=== PATIENT | male | born 1955 | race Caucasian/White ===

== ENCOUNTER 2017-04-30 09:58 | Emergency (ER) | payer BC ==
[2017-04-30 10:56] VITALS: BP 139/84
--- NOTE | 2017-04-30 11:07 | UC ---
Throat Pain/Nasal [place] HPI - HPI Summary HPI Summary: Pt c/o sore throat, nasal congestion, sinus tenderness, fever, and PND X 7 days. - History of Current Complaint Stated Complaint: COUGH,FEVER Time Seen by Provider: 04/30/17 10:31 Hx Obtained From: Patient Onset/Duration: Gradual Onset, Lasting Days - 7, Worse Since - onset Severity: Mild Cough: Nonproductive Associated Signs & Symptoms: Positive: Sinus Discomfort, Fever Related History: Seasonal Allergies - Epiglottits Risk Factors Epiglottis Risk Factors: Negative - Allergies/Home Medications Allergies/Adverse Reactions: Allergies Allergy/AdvReac Type Severity Reaction Status Date / Time SANTY Inhibitors Allergy Unknown Coughing Verified 04/30/17 10:46 No Known Drug Allergy Allergy See Comment Verified 10/08/13 09:50 Home Medications: Home Medications Valsartan TAB* [Diovan TAB*] 80 mg PO DAILY 04/30/17 [History Confirmed 04/30/17 ] PMH/Surg Hx/FS Hx/Imm Hx Previously Healthy: Yes Cardiovascular History: Hypertension - Surgical History Surgical History: Yes Surgery Procedure, Year, and Place: TONSILLECTOMY - Family History Known Family History: Positive: Cardiac Disease - Social History Occupation: Employed Full-time Lives: With Family Alcohol Use: Daily Alcohol Amount: 2 per day Substance Use Type: None Smoking Status (MU): Never Smoked Tobacco Have You Smoked in the Last Year: No - Immunization History Most Recent Influenza Vaccination: NOVEMBER 2016 Vaccination Up to Date: Yes Review of Systems Constitutional: Fever, Chills Skin: Negative Eyes: Negative ENT: Sore Throat, Sinus Congestion, Sinus Pain/Tenderness Respiratory: Cough Cardiovascular: Negative Gastrointestinal: Negative Genitourinary: Negative Motor: Negative Neurovascular: Negative Musculoskeletal: Negative Neurological: Headache Psychological: Negative Is Patient Immunocompromised?: No All Other Systems Reviewed And Are Negative: Yes Physical Exam Triage Information Reviewed: Yes Appearance: Well-Appearing Vital Signs: Initial Vital Signs Temp 99.2 F 04/30/17 10:48 Pulse 85 04/30/17 10:48 Resp 20 04/30/17 10:48 BP 139/84 04/30/17 10:48 Pulse Ox 99 04/30/17 10:48 Vital Signs Reviewed: Yes Eye Exam: Normal ENT Exam: Other ENT: Positive: Nasal congestion, Sinus tenderness Dental Exam: Normal Neck exam: Normal Respiratory Exam: Normal Cardiovascular Exam: Normal Musculoskeletal Exam: Normal Neurological Exam: Normal Psychological Exam: Normal Skin Exam: Normal Throat Pain/Nasal Course/Dx - Differential Dx/Diagnosis Differential Diagnosis/HQI/PQRI: Sinusitis Provider Diagnoses: sinusitis. cough Discharge - Discharge Plan Condition: Stable Disposition: HOME Prescriptions: Amoxicillin PO (*) [Amoxicillin 875 MG (*)] 875 mg PO Q12H #20 tab Benzonatate CAP* [Tessalon 100 MG CAP*] 100 mg PO Q8H PRN #30 cap PRN Reason: Cough guaiFENesin ER TAB [Mucinex*] 600 mg PO Q12H #20 tab Patient Education Materials: Sinusitis (ED), Acute Cough (ED) Referrals: Daryl Sharma MD [Primary Care Provider] - If Needed
== END 2017-04-30 11:20 | disposition home or self-care (01) ==
LOC: UCCORT 09:58
DX: J32.9 Chronic sinusitis, unspecified (principal); R05 Cough; I10 Essential (primary) hypertension; Z88.8 Allergy status to other drugs, medicaments and biological substances
CPT/HCPCS: 99211; G0463

== ENCOUNTER 2018-05-19 12:51 | Emergency (ER) | payer BC ==
[2018-05-19 13:12] VITALS: BP 137/90
--- NOTE | 2018-05-19 13:29 | UC ---
Respiratory Complaint HPI - HPI Summary HPI Summary: Pt presents with "coughing up blood" sudden onset, once last evening and once this morning. Pt denies fever and URI symptoms. Pt denies hx of smoking and exposure to TB. - History of Current Complaint Chief Complaint: UCRespiratory Stated Complaint: COUGHING UP BLOOD(SPORADIC) Time Seen by Provider: 05/19/18 13:05 Hx Obtained From: Patient Onset/Duration: Sudden Onset - X 2 Timing: Intermittent Episodes Severity Initially: Mild Severity Currently: None Pain Intensity: 0 Character: Cough: Productive - hemoptysis Aggravating Factors: Nothing Alleviating Factors: Spontaneous Resolution Associated Signs And Symptoms: Positive: Negative - Risk Factors Pulmonary Embolism Risk Factors: Negative Cardiac Risk Factors: Negative Pseudomonas Risk Factors: Negative Tuberculosis Risk Factors: Negative - Allergies/Home Medications Allergies/Adverse Reactions: Allergies Allergy/AdvReac Type Severity Reaction Status Date / Time SANTY Inhibitors Allergy Coughing Verified 05/19/18 13:07 Home Medications: Home Medications Irbesartan 75 mg PO DAILY 05/19/18 [History Confirmed 05/19/18] Tamsulosin CAP* [Flomax CAP*] 0.4 mg PO DAILY 05/19/18 [History Confirmed ] PMH/Surg Hx/FS Hx/Imm Hx Previously Healthy: Yes - Surgical History Surgical History: Yes Surgery Procedure, Year, and Place: TONSILLECTOMY - Family History Known Family History: Positive: Cardiac Disease - Social History Occupation: Retired Lives: With Family Alcohol Use: Daily Alcohol Amount: 2 per day Substance Use Type: None Smoking Status (MU): Never Smoked Tobacco Have You Smoked in the Last Year: No - Immunization History Most Recent Influenza Vaccination: NOVEMBER 2016 Vaccination Up to Date: Yes Review of Systems All Other Systems Reviewed And Are Negative: Yes Constitutional: Positive: Negative Skin: Positive: Negative Eyes: Positive: Negative ENT: Positive: Negative Respiratory: Positive: Cough Cardiovascular: Positive: Negative Gastrointestinal: Positive: Negative Genitourinary: Positive: Negative Motor: Positive: Negative Neurovascular: Positive: Negative Musculoskeletal: Positive: Negative Neurological: Positive: Negative Psychological: Positive: Negative Is Patient Immunocompromised?: No Physical Exam Triage Information Reviewed: Yes Appearance: Well-Appearing Vital Signs: Initial Vital Signs Temp 97.7 F 05/19/18 13:04 Pulse 58 05/19/18 13:04 Resp 16 05/19/18 13:04 BP 137/90 05/19/18 13:04 Pulse Ox 100 05/19/18 13:04 Vital Signs Reviewed: Yes Eye Exam: Normal ENT Exam: Normal Dental Exam: Normal Neck exam: Normal Respiratory Exam: Normal Cardiovascular Exam: Normal Musculoskeletal Exam: Normal Neurological Exam: Normal Psychological Exam: Normal Skin Exam: Normal UC Diagnostic Evaluation - Laboratory O2 Sat by Pulse Oximetry: 100 Diagnostic Studies Comment: IMPRESSION: #. Stigmata of obstructive lung disease. No acute pulmonary or cardiac process evident. - Radiology Radiology Interpretation Completed By: Radiologist Respiratory Course/Dx - Differential Dx/Diagnosis Differential Diagnosis/HQI/PQRI: Bronchitis Provider Diagnosis: Hemoptysis, unspecified Discharge - Sign-Out/Discharge Documenting (check all that apply): Patient Departure All imaging exams completed and their final reports reviewed: Yes - Discharge Plan Condition: Stable Disposition: HOME Patient Education Materials: Hemoptysis (ED) Referrals: Daryl Sharma MD [Primary Care Provider] - As Soon As Possible - Billing Disposition and Condition Condition: STABLE Disposition: Home
== END 2018-05-19 13:59 | disposition home or self-care (01) ==
LOC: UCCORT 12:51
DX: R04.2 Hemoptysis (principal); Z88.8 Allergy status to other drugs, medicaments and biological substances
CPT/HCPCS: 71046; 99211; G0463